=== PATIENT | female | born 1980 | race Caucasian/White ===

== ENCOUNTER → 2025-03-07 | Outpatient (BNVA) | payer BC, MEDICAID, SELFPAY | END | disposition home or self-care (01) | PROVIDERS: PCP Family Medicine; Referring Provider Family Medicine; Visit Provider Urology | DX: N39.0 Urinary tract infection, site not specified (principal); E11.9 Type 2 diabetes mellitus without complications; E03.9 Hypothyroidism, unspecified; Z87.891 Personal history of nicotine dependence | CPT/HCPCS: 81003; 99212; G0463 ==

== ENCOUNTER → 2025-05-20 | Outpatient (CLI) | payer OTHER, MEDICAID, SELFPAY ==
--- NOTE | 2025-05-20 15:00 | XR_ITS ---
Examination: CT abdomen, without intravenous contrast. CT pelvis, without intravenous contrast. CT abdomen, with intravenous contrast. CT pelvis, with intravenous contrast. 2-D sagittal coronal reconstructions. Date and time of exam:May 20, 2025 1622 hours INDICATIONS: Diagnosis urinary tract infection, site not specified, urinary tract infections one year CTDI: vol (mGy) 18.1 DLP: (mGycm) 962 Technique: Multiple 3.0 axial images of the abdomen and pelvis without intravenous contrast, 3.0 mm slice thickness. Multiple 3.0 postcontrast images abdomen and pelvis also obtained, post intravenous injection of Isovue 370 2-D sagittal and coronal reconstructions. Low dose protocols were performed. One or more of the following dose reduction techniques were used; automated exposure control, adjustment of the mA and/or KV according to patient size, use of iterative reconstruction technique. Findings: 4 mm liver cyst No gallstones Spleen not enlarged No pancreatic mass Normal adrenal glands No renal or ureteral calculi, no hydronephrosis, no renal mass lesion No pericecal inflammatory change Anteverted uterus No pelvic mass No bladder mass or bladder calculi Intact osseous structures IMPRESSION: No renal or ureteral calculi, no hydronephrosis, no renal mass lesion No bladder mass or bladder calculi
[2025-05-20 16:19] LABS: Albumin, Serum 4.1 gm/dL (3.5-5.0); Anion Gap 7 (7-16); BUN/Creatinine Ratio 9 Ratio (12-20); Blood Urea Nitrogen 7 mg/dL (9-23); Calcium 8.9 mg/dL (8.3-10.6); Calcium (Corrected) 8.9 mg/dL (8.5-10.1); Carbon Dioxide 30.8 mMol/L (20.0-31.0); Chloride 105 mMol/L (98-107); Creatinine (Component) 0.8 mg/dL (0.6-1.3); Glucose 141 mg/dL (74-106); Osmolality,Calculated 284 (275-295); Phosphorous 3.0 mg/dL (2.4-5.1); Potassium 4.7 mMol/L (3.4-5.1); Sodium 143 mMol/L (136-145); eGFR > 60 See Note
== END | disposition home or self-care (01) ==
PROVIDERS: PCP Family Medicine; Referring Provider Urology; Visit Provider Urology
DX: N39.0 Urinary tract infection, site not specified (principal); N20.0 Calculus of kidney; Q64.9 Congenital malformation of urinary system, unspecified
CPT/HCPCS: 36415; 74178; 80069; 87086; A4649; Q9967

== ENCOUNTER → 2025-06-04 | Outpatient (BNVA) | payer OTHER, MEDICAID, SELFPAY | END | disposition home or self-care (01) | PROVIDERS: PCP Family Medicine; Referring Provider Family Medicine; Visit Provider Urology | DX: N39.0 Urinary tract infection, site not specified (principal); E10.9 Type 1 diabetes mellitus without complications; E03.9 Hypothyroidism, unspecified | CPT/HCPCS: 81003; 99212; G0463 ==